=== PATIENT | female | born 1955 | race Caucasian/White ===

== ENCOUNTER → 2019-05-04 | Day surgery (SDC) | payer BC ==
[2019-05-01 15:33] VITALS: BMI 28.0
[~2019-05-04] MED LIST: ALPRAZolam 0.25 MG TAB ONE; ALPRAZolam 0.25 MG TAB PO PRN; ALPRAZolam 0.5 MG TAB PO PRN; ASPIRIN 325 MG TAB PO STA; ATORVASTATIN 80 MG TAB PO STA; HEPARIN SODIUM 1,000 UN/ML (10ML VL) IV ONE; HEPARIN SODIUM 1,000 UN/ML (10ML VL) ONE; IOPAMIDOL-370 100ML BTL INJ ONE; LIDOCAINE 1% INJ 10MG/ML (20 ML MDV) ONE; LIDOCAINE 1% INJ 10MG/ML (20 ML MDV) SQ ONE; MIDAZOLAM (PF) 2 MG/2 ML VIAL IVP ONE; NITROGLYCERIN SL TABS 0.4 MG TAB SUBLINGUAL PRN; RX INFO: IV CONTRAST WAS GIVEN 1 EACH MISC MISCELLANE PRN; SODIUM CHLORIDE 0.9% 1,000 ML IV ONE; SODIUM CHLORIDE 0.9% 1,000 ML IV SCH; SODIUM CHLORIDE 0.9% 1,000 ML in EMPTY BAG 1 BAG IV ONE; VERAPAMIL 2.5 MG/ML 2 ML AMP ONE
[2019-05-04 07:00] LABS: Basophils % (A) 0 %; Eosinophils # (A) 0.2 k/uL (0-0.7); Eosinophils % (A) 3 %; HCT 36.5 % (34.0-46.0); HGB 12.1 gm/dL (11.4-16.0); Lymphocytes # (A) 2.2 k/uL (1.0-4.8); Lymphocytes % (A) 31 %; MCH 27.6 pg (25.0-35.0); MCHC 33.1 g/dL (31.0-37.0); MCV 83.3 fL (80.0-100.0); Mean Platelet Volume 6.7; Monocytes # (A) 0.4 k/uL (0-1.0); Monocytes % (A) 6 %; Neutrophils % (A) 58 %; Platelet Count 413 k/uL (150-450); RBC 4.38 m/uL (3.80-5.40); RDW 14.5 % (11.5-15.5); WBC 6.9 k/uL (3.8-10.6)
[2019-05-04 07:08] VITALS: RESP 16; TEMP 98
[2019-05-04 07:10] LABS: African American GFR (CKD) >90 (>60 ml/min/1.73 sqM); Anion Gap 8 mmol/L; Blood Urea Nitrogen 16 mg/dL (7-17); Carbon Dioxide 28 mmol/L (22-30); Chloride 104 mmol/L (98-107); Glucose 110 mg/dL (74-99); Potassium 4.3 mmol/L (3.5-5.1); Sodium 140 mmol/L (137-145)
[2019-05-04] MEDS: VERAPAMIL SYRINGE (5 MG/10 ML) INTRAARTER ONE ×2 (07:58→08:10)
--- NOTE | 2019-05-04 10:11 | CC ---
CARDIAC CATHETERIZATION REPORT DATE OF SERVICE: 05/04/2019 PERFORMING PHYSICIAN: Elias Finn MD, [employer]. PROCEDURE PERFORMED: 1. Selective right and left coronary angiogram. 2. Left heart catheterization. INDICATION: This is a very pleasant 64-year-old female patient with history of hypertension as well as dyslipidemia and significant family history of coronary artery disease who presented who was experiencing shortness of breath with exertion concerning for severe underlying coronary artery disease. She underwent an EKG which revealed sinus rhythm with T-wave inversion in the anteroseptal leads concerning for CAD. Because of that, a heart catheterization was advised. APPROACH: Right radial artery. COMPLICATION: None. LEVEL OF SEDATION: Moderate with sedation length of 18 minutes. PROCEDURE DESCRIPTION: After obtaining an informed consent, the patient was brought to the cardiac poultry farm laborer. The right radial artery was cannulated using micropuncture technique and the micropuncture wire passed easily, then I placed a 5-[place] sheath. I did after that give the patient 2 mg of verapamil IA and units of heparin IV units of heparin IV. Subsequently, selective right and left coronary angiogram was performed using JR3.5 and JL3.5 catheters. Left heart catheterization was performed using the JR4 which crossed the LV, then I did pullback across aortic valve. The procedure was completed without any complication. SELECTIVE CORONARY ANGIOGRAM: 1. The right coronary artery is a large caliber vessel. It is a dominant vessel and appeared to be angiographically normal. Distally bifurcates into PDA and PLV branches, both appeared to be angiographically normal. 2. The left main is angiographically normal it bifurcates into left circumflex, ramus intermedius, and left anterior descending artery. 3. The left circumflex is a large caliber vessel, it is a nondominant vessel. The left circumflex is angiographically normal. It gives rise into first and second obtuse marginal branches, both appeared to be angiographically normal. 4. The LAD is a large caliber vessel. It is angiographically normal. It gives rise in the proximal to midportion into a large diagonal branch which seems to be angiographically normal. HEMODYNAMICS: The left ventricular end-diastolic pressure was about 10 mmHg without significant gradient across the aortic valve. CONCLUSION: 1. Normal coronary angiogram. 2. Normal left ventricular end-diastolic pressure. POSTPROCEDURE MANAGEMENT: 1. Medical treatment. 2. Follow up with the patient. MMODL / IJN: [id number] /
[2019-05-04 16:05] VITALS: BP 106/62; PULSE 62
== END ==
LOC: CATHCVL 06:01
PROVIDERS: ATTEND Internal Medicine Interventional Cardiology
DX: I20.0 Unstable angina (principal); R06.02 Shortness of breath; R42 Dizziness and giddiness; R55 Syncope and collapse; I10 Essential (primary) hypertension; E78.5 Hyperlipidemia, unspecified; Z82.49 Family history of ischemic heart disease and other diseases of the circulatory system; E78.00 Pure hypercholesterolemia, unspecified
CPT/HCPCS: 93458; 80048; 85025; C1769; C1894; J2001; J1644; Q9967; J2250